=== PATIENT | female | born 2000 | race Caucasian/White ===

== ENCOUNTER 2022-07-09 11:31 | Emergency (ER) | payer OTHER, SELFPAY ==
[2022-07-09 11:41] VITALS: BP 145/79; PULSE 98; RESP 16; TEMP 36.5; O2SAT 97
--- NOTE | 2022-07-09 12:18 | ED.DENTAL ---
HPI - Dental/Oral General Chief complaint: Dental/Oral Stated complaint: Toothache Time Seen by Provider: 07/09/22 12:18 Source: patient, RN notes reviewed and old records reviewed Mode of arrival: ambulatory Limitations: no limitations History of Present Illness HPI Narrative: 22-year-old female who presents to [facility] with complaints of pain along gum line on right lower gum with small white lesion noted on gum, no drainage or acute redness noted of tissue for the past 3 days teeth have been pulled to this area. Patient also states that she has some swelling to the right side of her face with discomfort. No trismus noted, no swelling under her tongue, denies any difficulty with her breathing or with swallowing. Patient reports she is taking Tylenol and ibuprofen, she has used ice and heat with no relief of her discomfort. MD Complaint: tooth pain Severity scale (1-10): 10 Treatment prior to arrival: oral analgesic and other (ice and heat) Related Data Allergies Allergy/AdvReac Type Severity Reaction Status Date / Time vancomycin Allergy Intermediate Rash Verified 07/09/22 11:54 Penicillins Allergy Unknown Unknown Verified 07/09/22 11:54 Review of Systems Review of Systems: CONSTITUTIONAL: Denies fever, chills, or sweats. ENT: Denies rhinorrhea, congestion, sore throat, or otalgia. Reports dental pain along gum lower right, no teeth present in area have previously been removed. CARDIOVASCULAR: Denies chest pain, palpitations, or edema. RESPIRATORY: Denies cough or dyspnea. SKIN: Denies rash or itching. MUSCULOSKELETAL: Denies myalgia. NEUROLOGIC: Denies headache All systems reviewed & are unremarkable except as noted in HPI and below [facility] Past Medical History Medical History (Updated 07/10/22 @ 09:01 by Maine Bedolla NP) History of dental problems Social History Social History (Updated 07/10/22 @ 09:02 by Maine Bedolla NP) Smoking packs per day: 0.5 Smoking cigarettes per day: 10.0 Years smoked: 10 Smoking pack-years: 5.00 Smoking status: Current every day smoker Tobacco type: cigarettes Alcohol intake: current Alcohol use details: social Substance use type: does not use Living arrangements: with family Gender identity (if verbalized by the patient): Female Comments At time of signature, agree with nursing past medical, surgical, social and family history. There is no relevant family history pertinent to the presenting complaint Exam Narrative: GENERAL: Well-appearing, well-nourished, and in no acute distress. HEAD: Normocephalic, atraumatic. EYES: PERRLA and EOMI. ENT: Nares clear, no rhinorrhea or epistaxis. Mucous membranes moist. Missing teeth, broken teeth, caries NECK: Supple. CHEST: Clear to auscultation. No respiratory distress. HEART: Regular rate and rhythm. No murmur heard. Normal peripheral pulses. SKIN: Warm, dry, no rash. NEURO: No focal deficits. Alert and oriented x3. Course Course Emergency Course: Patient is aware of diagnosis, understands and agrees to treatment plan. Anticipatory guidance given. Patient agrees to follow-up as directed and is aware of reasons to seek care at the emergency department. Portions of this record may have been created with voice recognition software Level of Care: Express Care Visit Vital Signs Vital signs: Vital Signs Temperature 36.5 C 07/09/22 11:41 Pulse Rate 98 07/09/22 11:41 Respiratory Rate 16 07/09/22 11:41 Blood Pressure 145/79 H 07/09/22 11:41 Pulse Oximetry 97 07/09/22 11:41 Oxygen Delivery Room Air 07/09/22 11:41 Temperature 36.5 C 07/09/22 11:41 Pulse Rate 98 07/09/22 11:41 Respiratory Rate 16 07/09/22 11:41 Blood Pressure 145/79 H 07/09/22 11:41 Pulse Oximetry 97 07/09/22 11:41 Oxygen Delivery Room Air 07/09/22 11:41 Reviewed MDM - Dental/Oral MDM Narrative Medical decision making narrative: Patients pain and complaint coupled with physical findings ar
== END 2022-07-09 12:45 | disposition home or self-care (01) ==
PROVIDERS: Emergency Provider Registered Nurse
DX: K05.20 Aggressive periodontitis, unspecified (principal); F17.210 Nicotine dependence, cigarettes, uncomplicated
CPT/HCPCS: 99203; G0463

== ENCOUNTER 2022-12-27 19:10 | Emergency (ER) | payer OTHER, SELFPAY ==
--- NOTE | ~2022-12-27 | XR_ITS ---
XR hand RT min 3V DATE: 12/27/2022 19:22 INDICATION: Smashed hand in car door on 12/26/2022. Generalized pain. TECHNIQUE: 3 views of the right hand COMPARISON: None FINDINGS: No fracture or dislocation, periosteal reaction or bone destruction, joint space narrowing, erosive change or chondrocalcinosis. IMPRESSION: Negative Reviewed, dictated and finalized at location A. IMPRESSION: Negative
[2022-12-27 19:26] VITALS: BP 135/87; PULSE 136; RESP 16; TEMP 36.2; O2SAT 98
--- NOTE | 2022-12-27 19:47 | ED.GENADULT ---
HPI - General Adult General Chief complaint: Extremity Injury, Upper Stated complaint: right hand smashed card door Source: patient Mode of arrival: ambulatory Limitations: no limitations History of Present Illness HPI narrative: Patient presents for evaluation of right hand pain and bruising since yesterday at 1500. She states her toddler accidentally closed her right hand in a car door. She reports 5/10 pain in affected area. She notes tingling in the digits of that hand. Pain is worse with movement and palpation. She is right-hand dominant. She tried taking ibuprofen for symptoms. Denies other injuries. Related Data Allergies Allergy/AdvReac Type Severity Reaction Status Date / Time vancomycin Allergy Intermediate Rash Verified 07/09/22 11:54 Penicillins Allergy Unknown Unknown Verified 07/09/22 11:54 Review of Systems Review of Systems: CONSTITUTIONAL: Denies fever, chills, or sweats. EYES: Denies visual changes, redness, or discharge. ENT: Denies rhinorrhea, congestion, sore throat, or otalgia. CARDIOVASCULAR: Denies chest pain, palpitations, or edema. RESPIRATORY: Denies cough or dyspnea. GASTROINTESTINAL: Denies abdominal pain, nausea, vomiting, or diarrhea. GENITOURINARY: Denies dysuria or hematuria. SKIN: Reports bruising to the right knee MUSCULOSKELETAL: Reports pain in right hand NEUROLOGIC: Reports tingling in digits of right hand. Denies headache, numbness, dizziness, or weakness. PSYCHIATRIC: Denies anxiety or depression. [facility] Past Medical History Medical History Hand contusion History of dental problems Surgical History Surgical History No pertinent past surgical history Family History Family History Mother Family history non-contributory Social History Social History Smoking packs per day: 0.5 Smoking cigarettes per day: 10.0 Years smoked: 10 Smoking pack-years: 5.00 Smoking status: Current every day smoker Tobacco type: cigarettes Alcohol intake: current Alcohol use details: social Substance use type: does not use Living arrangements: with family Gender identity (if verbalized by the patient): Female Exam Narrative: GENERAL: Well-appearing, well-nourished, and in no acute distress. HEAD: Normocephalic, atraumatic. EYES: PERRLA and EOMI. ENT: Nares clear, no rhinorrhea or epistaxis. Mucous membranes moist. Oropharynx without tonsillar hypertrophy exudate or other lesions. Bilateral TMs pearly major nonbulging NECK: Supple. No adenopathy or masses. No carotid bruits or JVD CHEST: Clear to auscultation. No respiratory distress. No wheezes rales or rhonchi HEART: Regular rate and rhythm. No murmur heard. Normal peripheral pulses. ABDOMEN: Soft, nontender, nondistended, normal active bowel sounds. EXTREMITIES:. 3/5 hand outside repairer special strength on the right. 5/5 hand outside repairer special strength on the left. Soft tissue swelling noted to right hand. Tenderness noted to 2nd-5th metacarpals of right hand. SKIN: Ecchymosis noted to the dorsal aspect of right he NEURO: No focal deficits. Alert and oriented x3. PSYCH: Normal mood and affect. Course Course Emergency Course: This is a 22-year-old female who presented for evaluation of right hand pain after getting her hand caught in a door yesterday. X ray negative for fracture. She has significant bruising to the right hand. She is placed in Williams wrap. Have her follow-up with Ortho to ensure no occult fracture present. Discharged with hydrocodone. Pharmacy contact me and let me know that they did not have 5-325mg tabs so 10-325 sent. Go to the ER for intractable pain. Patient in agreement with plan of care Level of Care: Express Care Visit Vital Signs Vital signs: Vital Signs Temperature 36.2
== END 2022-12-27 19:49 | disposition home or self-care (01) ==
PROVIDERS: Emergency Provider Nurse Practitioner; PCP Emergency Medicine
DX: S60.221A Contusion of right hand, initial encounter (principal); F17.210 Nicotine dependence, cigarettes, uncomplicated; W23.0XXA Caught, crushed, jammed, or pinched between moving objects, initial encounter
CPT/HCPCS: 73130; 99213; G0463

== ENCOUNTER 2024-05-08 16:26 | Emergency (ER) | payer OTHER, SELFPAY ==
--- NOTE | ~2024-05-08 | XR_ITS ---
EXAMINATION: XR chest 2V DATE: 05/08/2024 17:10 INDICATION: Chest pain. Shortness of breath. TECHNIQUE: Frontal and lateral views of the chest were obtained. COMPARISON: None. FINDINGS: There is no pneumonia, pleural effusion, or pneumothorax. The heart size is normal. IMPRESSION: 1. No acute cardiopulmonary disease. Reviewed, dictated and finalized at location A.
[2024-05-08 16:38] VITALS: BP 122/70; PULSE 113; RESP 14; TEMP 36.9; O2SAT 98
--- NOTE | 2024-05-08 16:50 | ED.FALL ---
HPI - Fall General Chief Complaint: Fall Stated Complaint: Ribs and chest/neck injury Time Seen by Provider: 05/08/24 16:50 Source: patient Mode of arrival: ambulatory Limitations: no limitations History of Present Illness HPI Narrative: 24-year-old female presents with complaint of pain to chest and sternum. Patient slipped and fell while getting out of bathtub 4 days ago and hit chest on [place] countertop. Was seen in ER and had negative chest x-ray. States she was told ?may miss small fractures if significant swelling ?. 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 Would like repeat chest x-ray. Denies shortness of breath. Patient took Tylenol prior to arrival. All systems reviewed and negative except as noted above. Related Data Home Medications Medication Instructions Recorded Confirmed gabapentin 300 mg capsule 300 mg PO TID 05/08/24 05/08/24 ketorolac 10 mg tablet 10 mg PO Q6H PRN Pain (Scale Score 05/08/24 05/08/24 4-6) tramadol 50 mg tablet 50 mg PO Q6H PRN Pain (Scale Score 05/08/24 05/08/24 4-6) Allergies Allergy/AdvReac Type Severity Reaction Status Date / Time vancomycin Allergy Intermediate Rash Verified 05/08/24 16:49 Penicillins Allergy Unknown Unknown Verified 05/08/24 16:49 Review of Systems Review of Systems: CONSTITUTIONAL: Denies fever, chills, or sweats. EYES: Denies visual changes, redness, or discharge. ENT: Denies rhinorrhea, congestion, sore throat, or otalgia. CARDIOVASCULAR: Denies chest pain, palpitations, or edema. RESPIRATORY: Denies cough or dyspnea. GASTROINTESTINAL: Denies abdominal pain, nausea, vomiting, or diarrhea. GENITOURINARY: Denies dysuria or hematuria. SKIN: Denies rash or itching. MUSCULOSKELETAL: Denies back pain, joint pain, or myalgia. Reports pain to anterior chest wall and sternum. NEUROLOGIC: Denies headache, numbness, or weakness. PSYCHIATRIC: Denies anxiety or depression. All other systems reviewed are negative, except as documented in HPI. [facility] Past Medical History Medical History Hand contusion History of dental problems Surgical History Surgical History No pertinent past surgical history Family History Family History Mother Family history non-contributory Social History Social History Smoking packs per day: 0.5 Smoking cigarettes per day: 10.0 Years smoked: 10 Smoking pack-years: 5.00 Smoking status: Current every day smoker Tobacco type: cigarettes Alcohol intake: current Alcohol use details: social Substance use type: does not use Living arrangements: with family Gender identity (if verbalized by the patient): Female Comments At time of signature, agree with nursing past medical, surgical, social and family history. There is no relevant family history pertinent to the presenting complaint. Exam Narrative: GENERAL: This is a well-nourished, well-developed patient, in no apparent distress. HEAD: normocephalic, atraumatic. EYES: PERRL. Sclera clear/white. Vision is grossly intact. EARS: External ears normal NOSE: External nose normal NECK: Neck supple, non-tender without lymphadenopathy, masses or thyromegaly. CARDIOVASCULAR: Regular rate and rhythm without murmurs, gallops, or rubs. RESPIRATORY: Clear to auscultation. Breath sounds equal bilaterally. No wheezes, rales, or rhonchi. SKIN: warm, Dry, intact with no suspicious lesions or rash, good texture and turgor. NEURO: awake, alert, and oriented to person, place and time. There were no obvious focal neurologic abnormalities. EXTREMITIES: No joint tenderness, effusion, or edema noted. MUSCULOSKELETAL: TENDERNESS ON PALPATION OF UPPER CHEST AND STERNUM WITH MILD BRUISING, NO SIGNIFICA
== END 2024-05-08 17:22 | disposition home or self-care (01) ==
PROVIDERS: Emergency Provider Nurse Practitioner Family; PCP Nurse Practitioner
DX: S20.219A Contusion of unspecified front wall of thorax, initial encounter (principal); W01.198A Fall on same level from slipping, tripping and stumbling with subsequent striking against other object, initial encounter; F17.210 Nicotine dependence, cigarettes, uncomplicated
CPT/HCPCS: 71046; 99213; G0463

== ENCOUNTER 2024-08-05 17:16 | Emergency (ER) | payer OTHER, SELFPAY ==
[2024-08-05 17:22] VITALS: BP 140/83; PULSE 95; RESP 20; TEMP 36.4; O2SAT 100
--- NOTE | 2024-08-05 17:41 | ED_ITS ---
HPI - Abdominal Pain General Chief Complaint: Abdominal Pain Stated Complaint: pain in kidney and back History of Present Illness HPI narrative: Patient presents with right flank pain that radiates around to her right upper quadrant. Patient states she was hospitalized for 5 days at [facility] and discharged 1 day ago with pancreatitis and fatty liver. Patient presents today with increased pain patient reports that she is taking Toradol at home which is not controlling the pain. Patient states they gave her morphine in the hospital and is still going to control the pain. Patient states she has pancreatitis in due to alcoholism in she has a history of drinking vodka every night but she has not had any alcohol intake since she was hospitalized. Related Data Home Medications Medication Instructions Recorded Confirmed gabapentin 300 mg capsule 300 mg PO TID 05/08/24 08/05/24 ketorolac 10 mg tablet 10 mg PO Q6H PRN Pain (Scale Score 05/08/24 08/05/24 4-6) tramadol 50 mg tablet 50 mg PO Q6H PRN Pain (Scale Score 05/08/24 08/05/24 4-6) Allergies Allergy/AdvReac Type Severity Reaction Status Date / Time vancomycin Allergy Intermediate Rash Verified 08/05/24 17:32 Penicillins Allergy Unknown Unknown Verified 08/05/24 17:32 Review of Systems Review of Systems: CONSTITUTIONAL: Denies fever, chills, or sweats. EYES: Denies visual changes, redness, or discharge. ENT: Denies rhinorrhea, congestion, sore throat, or otalgia. CARDIOVASCULAR: Denies chest pain, palpitations, or edema. RESPIRATORY: Denies cough or dyspnea. GASTROINTESTINAL: Denies abdominal pain, nausea, vomiting, or diarrhea. GENITOURINARY: Denies dysuria or hematuria. SKIN: Denies rash or itching. MUSCULOSKELETAL: Denies back pain, joint pain, or myalgia. NEUROLOGIC: Denies headache, numbness, or weakness. PSYCHIATRIC: Denies anxiety or depression. [facility] Past Medical History Medical History Hand contusion History of dental problems Surgical History Surgical History No pertinent past surgical history Family History Family History Mother Family history non-contributory Social History Social History Smoking packs per day: 0.5 Smoking cigarettes per day: 10.0 Years smoked: 10 Smoking pack-years: 5.00 Smoking status: Current every day smoker Tobacco type: cigarettes Alcohol intake: current Alcohol use details: social Substance use type: does not use Living arrangements: with family Gender identity (if verbalized by the patient): Female Comments At time of signature, agree with nursing past medical, surgical, social and family history. There is no relevant family history pertinent to the presenting complaint Exam Narrative: GENERAL: Well-appearing, well-nourished, and in no acute distress. HEAD: Normocephalic, atraumatic. EYES: PERRLA and EOMI. ENT: Nares clear, no rhinorrhea or epistaxis. Mucous membranes moist. NECK: Supple. CHEST: Clear to auscultation. No respiratory distress. HEART: Regular rate and rhythm. No murmur heard. Normal peripheral pulses. ABDOMEN: Soft, nontender, nondistended, normal active bowel sounds. Right upper quadrant pain right flank pain EXTREMITIES: Normal range of motion. No edema. SKIN: Warm, dry, no rash. NEURO: No focal deficits. Alert and oriented x3. [place] Coma Scale Eye Opening: Spontaneous 4 [place] Coma Scale Motor: Obeys Commands 6 [place] Coma Scale Verbal: Oriented 5 Sebastian Coma Scale Total 15 Course Course Level of Care: Express Care Visit Vital Signs Vital signs: Vital Signs Temperature 36.4 C 08/05/24 17:22 Pulse Rate 95 08/05/24 17:22 Respiratory Rate 20 08/05/24 17:22 Blood Pressure 140/83 08/05/24 17:22 Pulse Oximetry 100 08/05/24 17:22 Oxygen Delivery Room Air 08/05/24 17:22 Temperature 36.4 C 08/05/24 17:22 Pulse Rate 95 08/05/24 17:22 Respiratory Rate 20 08/05/24 17:22 Blood Pressure 140/83 08/05/24 17:22 Pulse Oximetry 100 08/05/24 17:22 Oxygen Delivery Room Air 08/05/24 17:22 Please MONROE schedule a followup visit with your personal physician for further evaluation and treatment. Including recheck and discussion of your blood pressure. If your symptoms persist, change or worsen significantly before you can contact your personal physician then please, without delay, go to the emergency department for further evaluation Transfer Transfer rationale: Higher that level of care for evaluation of right flank and right upper quadrant pain Accepting physician: Dr. Mendez Transfer comments: Patient prefers to go by private vehicle instructed to go to [facility] Emergency Room do not eat or drink EN route Discharge Plan Discharge Clinical Impression: Abdominal pain, Flank pain, Abdominal pain, acute, right upper quadrant Patient Disposition: Acute Care Hospital Condition: Stable Instructions: Abdominal Pain (ED) Additional Instructions: Go directly to him [facility] Emergency Room for further evaluation labs and treatment Do not eat or drink EN route [facility] Emergency Room Prescriptions: No Action tramadol 50 mg tablet 50 mg PO Q6H PRN (Reason: Pain (Scale Score 4-6)) ketorolac 10 mg tablet 10 mg PO Q6H PRN (Reason: Pain (Scale Score 4-6)) gabapentin 300 mg capsule 300 mg PO TID Follow-up/Referrals: Montez,Jessica Alvarado [Primary Care Provider] -
[2024-08-05 17:52] LABS: EDUAAPPEAR Cloudy; EDUABILI Negative (Negative); EDUABLOOD Negative (Negative); EDUACOLOR1 Yellow; EDUAGLUCOSE Negative (Negative); EDUAKETONE Negative (Negative); EDUALEUKO Trace (Negative); EDUANITRATE Negative (Negative); EDUAPH 6.5; EDUAPROTEIN Negative (Negative); EDUASPGRAVITY 1.025; EDUAUROBILI 0.2
== END 2024-08-05 17:45 | disposition short-term general hospital (02) ==
PROVIDERS: Emergency Provider Nurse Practitioner Family; PCP Nurse Practitioner
DX: R10.11 Right upper quadrant pain (principal); R10.9 Unspecified abdominal pain; F17.210 Nicotine dependence, cigarettes, uncomplicated
CPT/HCPCS: 81003; 87086; 99213; G0463